=== PATIENT | female | born 1980 | race Caucasian/White ===

== ENCOUNTER 2018-07-06 12:43 | Emergency (ER) | payer MEDICARE, MEDICAID ==
--- NOTE | 2018-07-06 13:58 | ED Physician Chart ---
ED Chief Complaint/HPI - Patient Information Date Seen:: 07/06/18 Time Seen:: 13:40 Chief Complaint:: pruritic rash History of Present Illness:: Patient's had a pruritic rash primarily on her back last 1 week. Patient's mother is also had a pruritic rash for last 1 week. Patient and her mother live together. Patient's uncle who lives in a [place] has a pruritic rash diagnosed as eczema was staying at the patient's home from June 20 2 July 04. Vitals:: Vital Signs - 8 hr 07/06/18 13:01 Temp 97.7 F HR 97 RR 18 BP 126/75 O2 Sat % 97 Historian:: Patient Review:: Nurse's Note Reviewed ED Review of Systems - Review of Systems General/Constitutional: No fever, No chills, No weight loss, No weakness, No diaphoresis, No edema, No loss of appetite Skin: Skin lesions, Rash, No bruising Head: No headache, No light-headedness Eyes: No loss of vision, No pain, No diplopia ENT: No earache, No nasal drainage, No sore throat, No tinnitus Neck: No neck pain, No swelling, No thyromegaly, No stiffness, No mass noted Cardio Vascular: No chest pain, No palpitations, No PND, No orthopnea, No edema Pulmonary: No SOB, No cough, No sputum, No wheezing GI: No nausea, No vomiting, No diarrhea, No pain, No melena, No hematochezia, No constipation, No hematemesis G/U: No dysuria, No frequency, No hematuria Musculoskeletal: No bone or joint pain, No back pain, No muscle pain Endocrine: No polyuria, No polydipsia Psychiatric: No prior psych history, No depression, No anxiety, No suicidal ideation Hematopoietic: No bruising, No lymphadenopathy Allergic/Immuno: No urticaria, No angioedema Neurological: No syncope, No focal symptoms, No weakness, No paresthesia, No headache, No seizure, No dizziness, No confusion, No vertigo ED Past Medical History - Past Medical History Past Medical History: Other (depression with psychotic features) Family History: Diabetes Melitus, HTN Social History: Smoker, Other (states she smokes one pack of cigarettes a day) Surgical History: None Psychiatricy History: Other (depression with psychotic features) Family Medical History - Family Member Mother Age: 67 Ethnicity: Living Status: Still Living Hx Family Hypertension: Yes Hx Family Diabetes: Yes ED Physical Exam - Physical Examination General/Constitutional: Awake, Well-developed, well-nourished, Alert, No distress, GCS 15, Non-toxic appearing, Ambulatory Head: Atraumatic Eyes: Lids, conjuctiva normal, PERRL, EOMI Other Skin comments:: pale maculopapular rash on back ENMT: External ears, nose nl, Nasal exam nl, Lips, teeth, gums nl Neck: Nontender, Full ROM w/o pain, No JVD, No nuchal rigidity, No bruit, No mass, No stridor Respiratory: Nl effort/Exclusion, Clear to Auscultation, No Wheeze/Rhonchi/Rales Cardio Vascular: RRR, No murmur, gallop, rubs, NL S1 S2 GI: No tenderness/rebounding/guarding, No organomegaly, No hernia, Normal BS's, Nondistended, No mass/bruits, No McBurney tenderness : No CVA tenderness Extremities: No tenderness or effusion, Full ROM, normal strength in all extremities, No edema, Normal digits & nails Neuro/Psych: Alert/oriented, DTR's symmetric, Normal sensory exam, Normal motor strength, Judgement/insight normal, Mood normal, Normal gait, No focal deficits Misc: Normal back, No paraspinal tenderness ED Assessment - Assessment General Assessment: Patient probably has scabies since her mother is similarly affected and her uncle who lives in a usp stayed in their house recently for about 2 weeks. I gave verbal instructions on how to apply the Elimite and also how to wash all clothing and bedding in warm water with detergent. ED Septic Shock - . Is Septic Shock (SBP<90, OR Lactate>4 mmol\L) present?: No - <6hrs of presentation: Vital Signs: Vital Signs - 8 hr 07/06/18 13:01 Temp 97.7 F HR 97 RR 18 BP 126/75 O2 Sat % 97 ED Reassessment (Disposition) - Diagnosis Diagnosis:: Scabies; history of depression - Aftercare/Follow up Instructions Aftercare/Follow-Up Instructions:: Refer to Discharge Instructions Medication Prescribed:: Elimite 60 g tube to apply per directions with one refill and Atarax 25 mg #20 to take 1 4 times a day as necessary for rash. - Patient Disposition Discharge/Transfer:: Home Condition at Disposition:: Stable, Unchanged
== END 2018-07-06 14:20 | disposition home or self-care (01) ==
LOC: ER 12:43
DX: B86 Scabies (principal); F32.9 Major depressive disorder, single episode, unspecified; F17.210 Nicotine dependence, cigarettes, uncomplicated
CPT/HCPCS: Z7502